=== PATIENT | female | born 1975 ===

== ENCOUNTER 2021-04-30 08:56 | Outpatient (CLI) | payer OTHER | END 2021-04-30 09:01 | disposition home or self-care (01) | LOC: SONOGRAMA 08:56 | PROVIDERS: ATTEND Pathology Anatomic Pathology & Clinical Pathology | DX: E04.2 Nontoxic multinodular goiter (principal) ==

== ENCOUNTER 2025-01-03 08:17 | Outpatient (CLI) | payer OTHER | END 2025-01-03 08:18 | disposition home or self-care (01) | LOC: SONOGRAMA 08:17 | PROVIDERS: ATTEND Pathology Anatomic Pathology & Clinical Pathology | DX: D34 Benign neoplasm of thyroid gland (principal); E06.3 Autoimmune thyroiditis; E04.2 Nontoxic multinodular goiter ==